=== PATIENT | female | born 1955 | race Caucasian/White ===

== ENCOUNTER 2022-07-27 08:55 | Outpatient (CLI) | payer OTHER, SELFPAY | END 2022-07-27 08:56 | disposition home or self-care (01) | PROVIDERS: PCP Family Medicine; Visit Provider Family Medicine | DX: R53.83 Other fatigue (principal); I10 Essential (primary) hypertension; R30.0 Dysuria; Z13.6 Encounter for screening for cardiovascular disorders | CPT/HCPCS: 80053; 80061; 82607; 84443; 85651 ==

== ENCOUNTER 2022-07-30 11:33 | Outpatient (CLI) | payer OTHER, SELFPAY | END 2022-07-30 11:34 | disposition home or self-care (01) | LOC: LONREF 11:33 | PROVIDERS: PCP Family Medicine; Visit Provider Family Medicine | DX: D50.9 Iron deficiency anemia, unspecified (principal) | CPT/HCPCS: 82728 ==

== ENCOUNTER 2022-11-02 10:03 | Outpatient (CLI) | payer OTHER, SELFPAY ==
--- NOTE | 2022-11-02 10:15 | CRLHL7_ITS ---
For Patients: As a result of the Century Cures Act, medical imaging exams and procedure reports are released immediately into your electronic medical record. You may view this report before your referring provider. If you have questions, please contact your health care provider. BILATERAL SCREENING MAMMOGRAM WITH COMPUTER-AIDED DETECTION AND TOMOSYNTHESIS TECHNIQUE: CC and MLO views were obtained. These mammographic images have been obtained using full-field digital technique. These mammographic images were interpreted with the benefit of computer-aided detection. Breast Tomosynthesis was used in this interpretation. COMPARISON FILM: 10/29/21, 03/09/19, 05/02/18. FINDINGS: The breasts are extremely dense, which lowers the sensitivity of mammography IMPRESSION: There is no radiographic evidence for malignancy. ASSESSMENT: BI-RADS Category 1: Negative RECOMMENDATION: Routine screening mammogram in 1 year. A lay language report of this examination will be provided to the patient. Boogie Hayden M.D. Diagnostic/Nuclear Medicine Radiologist [email or web address] SATINDER/Dictated by: Boogie Hayden MD @ 11/02/2022 10:32:00 AM (Electronically Signed)
== END 2022-11-02 10:04 | disposition home or self-care (01) ==
PROVIDERS: PCP Family Medicine; Visit Provider Family Medicine
DX: Z12.31 Encounter for screening mammogram for malignant neoplasm of breast (principal); R92.2 Inconclusive mammogram
CPT/HCPCS: 77063; 77067

== ENCOUNTER 2023-05-07 08:36 | Outpatient (CLI) | payer OTHER, SELFPAY ==
--- NOTE | 2023-05-07 09:00 | CRLHL7_ITS ---
For Patients: As a result of the Century Cures Act, medical imaging exams and procedure reports are released immediately into your electronic medical record. You may view this report before your referring provider. If you have questions, please contact your health care provider. INDICATION: Low back pain. TECHNIQUE: Multiplanar multisequence noncontrast MR images of the lumbar spine. COMPARISON: Lumbar spine radiographs 06/03/2022. FINDINGS: Ieog-ed-lfwhlbzd leftward lumbar curvature. Lumbar lordosis is preserved. Fnta-vb-xftyxboe chronic L1 vertebral body anterior wedging. No acute fracture. No T1 hypointense lesions. Normal conus terminates at L1-2. T12-L1: Moderate disc degeneration. Shallow posterior disc bulge. No spinal canal or neural foraminal narrowing. L1-2: Moderate disc degeneration and disc height loss. Minimal vertebral body edema. Posterior bulging and endplate spondylitic ridging. Mild facet arthropathy. Mild spinal canal and left lateral recess narrowing. Mild left without right neural foraminal narrowing. L2-3: Advanced disc degeneration and disc height loss. Left eccentric disc bulging and endplate spondylitic ridging. Ucrj-sr-yacckxvn facet arthropathy. Hwrl-mu-ssjhonhx spinal canal narrowing. Moderate left and vslf-lo-eetaewbg right lateral recess narrowing. Mild left without right neural foraminal narrowing. L3-4: Advanced disc degeneration and right eccentric disc height loss. Minimal vertebral body edema. Posterior disc bulging and endplate spondylitic ridging. Mild facet arthropathy. Mild spinal canal narrowing. Moderate stenosis of the lateral recesses. Mild right and minimal left neural foraminal narrowing. L4-5: Advanced disc degeneration and disc height loss. Posterior disc bulging and endplate spondylitic ridging. Moderate facet arthropathy. Mild spinal canal narrowing. Moderate left and osmc-wv-qyncpeme right lateral recess narrowing. Moderate left and mild right neural foraminal narrowing. L5-S1: Advanced disc degeneration and disc height loss. Posterior disc bulging and endplate spondylitic ridging. Fsjg-hr-scirldcy left and mild right facet arthropathy. No spinal narrowing. Ylky-qr-ijuygjvm left and mild right neural foraminal narrowing. Sacroiliac joint degenerative changes. Small T2 hyperintense lesions in the kidneys, most typical for renal cysts. IMPRESSION: 1. Multilevel lumbar spondylosis without spinal canal stenosis. 2. At L2-3, moderate left and wnma-qt-lnopydte right lateral recess narrowing. 3. At L3-4, moderate stenosis of the lateral recesses. 4. At L4-5, moderate narrowing of the left lateral recess and left neural foramen. Dictated by Feroz Lopez MD @ 05/07/2023 7:08:29 PM (Electronically Signed)
== END 2023-05-07 08:37 | disposition home or self-care (01) ==
LOC: MRI 08:36
PROVIDERS: PCP Family Medicine; Visit Provider Family Medicine
DX: M54.50 Low back pain, unspecified (principal); M47.896 Other spondylosis, lumbar region; M51.26 Other intervertebral disc displacement, lumbar region; M79.604 Pain in right leg; M79.605 Pain in left leg; R29.898 Other symptoms and signs involving the musculoskeletal system
CPT/HCPCS: 72148

== ENCOUNTER 2023-05-19 11:38 | Outpatient (CLI) | payer OTHER, SELFPAY ==
--- OUTSIDE RECORDS SUMMARY | 2023-05-24 21:03 | XMS_ITS | Clinical Summary ---
Author Name Unknown Organization [facility] Address [place], [place] [address] Care Team Providers Care Plate Stacker Name Role Phone Claudio Quezada MD Primary Care Provider Allergies Active Allergy Reactions Criticality Noted Date Comments Codeine Vomiting 07/27/2006 Medications Medication Sig Dispensed Refills Start Date End Date Status multivitamin (MVI) tablet Take 1 tablet by mouth once daily. 0 07/17/2009 Active calcium carbonate-vitamin D3, 600 mg-400 unit, tablet Take 1 tablet by mouth 2 times daily with meals. 180 tablet 0 05/05/2012 Active lisinopril-hydrochlor othiazide, 10-12.5 mg, (PRINZIDE; ZESTORETIC) 10-12.5 mg per tabletIndications:HTN (hypertension) Take 1 tablet by mouth once daily. 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 alireza 08/13/2016 Trochanteric bursitis 01/19/2012 Osteoarthritis of CMC joint of thumb 01/19/2012 Lateral epicondylitis of elbow 04/01/2011 Herpes simplex without mention of complication 0 12/23/2010 HTN (hypertension) 02/21/2008 Overview: Updated by system to replace inactive record Regular astigmatism 04/01/2006 Presbyopia 04/01/2006 Myopia 04/01/2006 BACK PAIN 11/25/2004 Resolved Problems Problem Noted Date Diagnosed Date Resolved Date Acute cystitis 11/29/2003 12/23/2010 Encounters Date Type Department Care Team Description 05/13/2023 Transcribe Orders [facility] - [place] [address] [place] [id number] Nate Cerrato MD from Last 3 Months Immunizations Name Administration Dates Next Due Influenza, IIV3 (Age >=3 years) 02/05/2009 Td (Age >=7 Years) 05/25/1996 Tdap 10/03/2007 Family History Medical History Relation Name Comments Other Father pancreatic canc er Cancer Mother lung Genetic Other cancer-father~h ypertension-father~diabetes-grandfather~ cataracts-grandmot Relation Name Status Comments Brother 1 Alive Brother 2 Alive Father Mother Other Sister 1 Alive Sister 2 Alive Social History Tobacco Use Types Packs/Day Years Used Date Smoking Tobacco: Never Smokeless Tobacco: Never Alcohol Use Standard Drinks/Week Comments Yes 1.7 (1 standard drink = 0.6 oz p ure alcohol) 1-2 week Sex and Gender Information Value Date Recorded Sex Assigned at Not on file Gender Identity Not on file Sexual Orientation Not on file Obstetrics History Para Term AB IAB SAB Ectopic Multiple Livin g Live Births 2 2 2 0 0 0 0 0 2 Date Outcome GA Total Labor Labor/2nd/3rd Weight Sex Delivery Anes PTL Laura A1 A5 Name Cl in Term Term Comments NSVLD x2 Last Filed Vital Signs Vital Sign Reading Time Taken Comments Blood Pressure 119/72 08/13/2016 5:41 PM CDT Pulse 84 08/13/2016 5:41 PM CDT Temperature 37.1 ??C (98.8 ??F) 12/14/2011 3:32 PM CD T Respiratory Rate 14 01/01/2012 8:35 AM CDT Oxygen Saturation 99% 12/14/2011 3:32 PM CDT Inhaled Oxygen Concentration - - Weight 51.3 kg (113 lb 2 oz) 01/19/2012 9:02 AM CDT Height 161.3 cm (5' 3.5) 01/01/2012 8:35 AM CDT Body Mass Index 19.72 01/01/2012 8:35 AM CDT Plan of Treatment Upcoming Encounters Date Type Department Care Team (Late st Contact Info) Description 06/07/2023 9:15 AM SENIOR QUALITY TECHNICIAN Appointment [facility] [address] [place] [address] Samantha Drake, PT [address] [place] [address] Health Maintenance Due Date Last Done Comments COVID-19 vaccine series (#1) 1955 Depression screening for age 12+ 1967 BMI (ht and wt on same day) for age 18+ 1973 Hepatitis C screening for ag e 18-79 1973 Zoster (shingles) series for age 50+ (1 of 2) 2005 Mammogram for age 45-75 12/22/2012 12/23/19 12, 12/29/2010, 09/12/2010, Additional history exists Lipids for age 45-75 12/24/2015 12/23/2010, 12/11/2009, 12/10/2008, Additional history exists Tetanus booster 10/02/2017 10/03/2007, 05/25/1996 Colonoscopy through age 75 11/22/2017 11/23/2007, DEXA/DXA scan for age 65+ 2020 12/12/2009 Pneumococcal series for age 65+ (1 of 1 - PCV) 2020 Influenza for age 65+ 01/15/2023 02/05/2009 Tdap Completed 10/03/2007 Care Teams Plate Stacker Relationship Specialty Start Date End Date Claudio Quezada MD PCP - General Family Practice 07/29/16
== END 2023-05-19 11:39 | disposition home or self-care (01) ==
LOC: NFLDREF 05-24 21:01
PROVIDERS: PCP Family Medicine; Referring Provider Family Medicine; Visit Provider Family Medicine
DX: M54.50 Low back pain, unspecified (principal)
CPT/HCPCS: 87086

== ENCOUNTER 2023-07-27 17:35 | Outpatient (CLI) | payer OTHER, SELFPAY | END 2023-07-27 17:36 | disposition home or self-care (01) | PROVIDERS: PCP Nurse Practitioner Family; Visit Provider Nurse Practitioner Family | DX: R41.89 Other symptoms and signs involving cognitive functions and awareness (principal) | CPT/HCPCS: 80053; 83735; 84443; 86039 ==

== ENCOUNTER 2023-08-06 16:34 | Emergency (ER) | payer OTHER, SELFPAY ==
[2023-08-06 16:40] VITALS: BP 107/66; PULSE 92; RESP 18; TEMP 36.7; O2SAT 99; BMI 22.1
--- NOTE | 2023-08-06 17:14 | ED.GENADULT ---
HPI - General Adult General Time Seen by Provider: 17:02 Date Seen: 08/06/23 Chief complaint: Arrhythmia/Palpitations Stated complaint: heart palpitations Time Seen by Provider: 08/06/23 16:55 Source: patient, RN notes reviewed and old records reviewed Mode of arrival: ambulatory Limitations: no limitations History of Present Illness HPI narrative: 68-year-old female who comes in today with multiple concerns. She reports that she has been having palpitations for the last several weeks. Also says her thinking feels foggy. A couple weeks ago she woke up with headaches on the top of her head, relieved with Excedrin. Some dyspnea on exertion, also posterior neck pain. She denies any fever, chills, weight loss, weight gain, urinary symptoms, nausea, vomiting, diarrhea, abdominal pain or bloating. Says she has seen in drinking normally. Denies increased stress. Patient is concerned that symptoms may be related to Botox that she got 4 months ago. Related Data Previous Rx's Medication Instructions Recorded lisinopril 10 1 tab PO DAILY #90 tabs 11/03/22 mg-hydrochlorothiazide 12.5 mg tablet estradiol 1 mg tablet 1 mg PO QDAY #30 tabs 05/20/23 progesterone micronized 100 mg 100 mg PO QAM 21 days #21 caps 05/20/23 capsule (Prometrium) Allergies Allergy/AdvReac Type Severity Reaction Status Date / Time codeine AdvReac Unknown Vomiting Verified 07/27/23 16:54 [facility] Medical History (Updated 08/06/23 @ 19:45 by Ashwin Betancourt MD) Arthralgia ?M25.50 - Pain in unspecified joint (ICD-10) Weakness of back ?R29.898 - Other symptoms and signs involving the musculoskeletal system (ICD-10) Low back pain radiating to both legs ?M54.50 - Low back pain, unspecified (ICD-10) ?M79.604 - Pain in right leg (ICD-10) ?M79.605 - Pain in left leg (ICD-10) Status post hysteroscopy ?Z98.890 - Other specified postprocedural states (ICD-10) Family History (Updated 05/05/23 @ 16:06 by Gomez Verduzco) Other Parkinson's disease Social History Smoking Status: Never smoker Do you use any of these nicotine containing products: None Second hand tobacco smoke exposure: No How often do you have a drink containing alcohol: never How often do you have six or more drinks on one occasion: Never AUDIT-C Alcohol total score: 0 Non-prescribed substance use: denies use service: No Exam Narrative: Exam Narrative: General: Well-developed and well-nourished, no acute distress Head: Atraumatic and normocephalic Eyes: Pupils are equal reactive, extraocular motions intact, conjunctiva clear ENT: External nose and ears are normal, posterior pharynx without erythema or exudate Neck: No midline cervical tenderness, full spontaneous range of motion the neck, trachea midline, no adenopathy Heart: Regular rate and rhythm no murmurs or thrills Lungs: Clear to auscultation bilaterally without wheezes or crackles Abdomen: Soft, nontender, nondistended with active bowel sounds Musculoskeletal: No tenderness, deformity, or edema Neurologic: Awake, alert, and oriented x3, no gross focal neurologic deficits, cranial nerves intact as tested Psych: Mood and affect are appropriate Skin: No rashes Const: Vital Signs, click to edit/add: Vital Signs - 24 hr 08/06/23 16:40 Temperature 98.0 F Pulse Rate [Pulse Oximeter] 92 Respiratory Rate 18 Blood Pressure [Ri ght Upper Arm] 107/66 Pulse Oximetry 99 Oxygen Delivery Me thod Room Air Course Course ED Course: Patient seen examined, prior records reviewed, reviewed prior labs which demonstrated normal basic metabolic panel normal magnesium, normal hepatic panel, normal ferritin, normal TSH, normal urinalysis. Patient presents today with multiple ongoing complaints including palpitations, intermittent headache, neck pain, lightheadedness, dyspnea on exertion. On exam here, patient's vital is stable, no focal neurologic deficits, lungs are clear, no abdominal tenderness or masses. Labs are ordered along with head CT given patient's concern about headaches although no focal neurologic deficits today. IV fluids will be initiated. I did review prior office visit from July 2022 when patient presented with almost identical symptoms of palpitations, shortness of breath, fatigue, brain fog and lightheadedness, negative evaluation at that time. Reevaluation(s) Time of Reevaluation #1: 18:45 Reevaluation #1: Labs ordered and independently interpreted by me with normal white blood cell count, normal basic metabolic panel other than slightly low anion gap. CT scan of the head neck does not demonstrate any acute finding, chest x-ray independently interpreted by me negative for acute or chronic findings. Vital Signs Vital signs: Initial Vital Signs Temperature 98.0 F 08/06/23 16:40 Temperature Source Temporal Artery Scan 08/06/23 16:40 Pulse Rate 92 08/06/23 16:40 Respiratory Rate 18 08/06/23 16:40 Blood Pressure 107/66 08/06/23 16:40 Blood Pressure Mean 79 08/06/23 16:40 Blood Pressure Position Sitting 08/06/23 16:40 Pulse Oximetry 99 08/06/23 16:40 Oxygen Delivery Method Room Air 08/06/23 16:40 Vital Signs Temperature 98.0 F 08/06/23 16:40 Pulse Rate 92 08/06/23 16:40 Respiratory Rate 18 08/06/23 16:40 Blood Pressure 107/66 08/06/23 16:40 Pulse Oximetry 99 08/06/23 16:40 Oxygen Delivery Method Room Air 08/06/23 16:40 Temperature 98.0 F 08/06/23 16:40 Pulse Rate 92 08/06/23 16:40 Respiratory Rate 18 08/06/23 16:40 Blood Pressure 107/66 08/06/23 16:40 Pulse Oximetry 99 08/06/23 16:40 Oxygen Delivery Method Room Air 08/06/23 16:40 Medications Administered Medications: Discontinued Medications Generic Name Dose Route Start Last Admin Trade Name Freq PRN Reason Stop Dose Admin Sodium Chloride 1,000 mls @ 1,000 mls/hr 08/06/23 17:30 08/06/23 18:51 0.9 % Sodium Chloride 1000 Ml IV 08/06/23 18:29 1,000 mls/hr .Q1H ALEJANDRO Administration Medical Decision Making Lab Data Labs: Lab Results 08/06/23 08/06/23 08/06/23 Range/Units 17:20 17:55 17:55 WBC 7.79 (4.50-11.00) K/uL RBC 4.50 (4.00-5.20) m/uL Hgb 14.4 (12.0-16.0) gm/dL Hct 43.0 (33.0-51.0) % MCV 96 (80-100) fL MCH 32 (26-34) pg MCHC 34 (32-36) gm/dL RDW Coeff of Son 13.2 (11.5-15.5) % Plt Count 185 (140-440) K/uL Neut % (Auto) 73.1 H (42.0-72.0) % Lymph % (Auto) 19.6 L (20-44) % Payne % (Auto) 6.3 (0.0-11.0) % Eos % (Auto) 0.6 (0.0-7.0) % Baso % (Auto) 0.4 (0.0-3.0) % Neut # (Auto) 5.70 (1.7-7.0) K/uL Lymph # (Auto) 1.50 (0.90-2.90) K/uL Payne # (Auto) 0.50 (0.00-0.90) K/UL Eos # (Auto) 0.05 (0.00-0.50) K/uL Baso # (Auto) 0.03 (0.00-0.30) K/uL Abs Immat Gran (auto) 0.00 (0.00-0.30) K/uL Imm/Tot Granulo (auto) 0.0 % Sodium Cancelled 138 Potassium Cancelled Chloride Carbon Dioxide Anion Gap BUN Creatinine Estimated Creat Clear Estimated GFR Glucose Calcium Magnesium (1.5-2.6) mg/dL C-Reactive Protein (0.5-1.0) mg/dL NT-Pro-B Natriuret Pep pg/mL POC Troponin I 0.00 L (0.01-0.04) ng/ml 08/06/23 08/06/23 08/06/23 Range/Units 17:55 17:55 17:55 WBC (4.50-11.00) K/uL RBC (4.00-5.20) m/uL Hgb (12.0-16.0) gm/dL Hct (33.0-51.0) % MCV (80-100) fL MCH (26-34) pg MCHC (32-36) gm/dL RDW Coeff of Son (11.5-15.5) % Plt Count (140-440) K/uL Neut % (Auto) (42.0-72.0) % Lymph % (Auto) (20-44) % Payne % (Auto) (0.0-11.0) % Eos % (Auto) (0.0-7.0) % Baso % (Auto) (0.0-3.0) % Neut # (Auto) (1.7-7.0) K/uL Lymph # (Auto) (0.90-2.90) K/uL Payne # (Auto) (0.00-0.90) K/UL Eos # (Auto) (0.00-0.50) K/uL Baso # (Auto) (0.00-0.30) K/uL Abs Immat Gran (auto) (0.00-0.30) K/uL Imm/Tot Granulo (auto) % Sodium Potassium 4.4 Chloride Cancelled 104 Carbon Dioxide Cancelled 29 Anion Gap Cancelled BUN Creatinine Estimated Creat Clear Estimated GFR Glucose Calcium Magnesium (1.5-2.6) mg/dL C-Reactive Protein (0.5-1.0) mg/dL NT-Pro-B Natriuret Pep pg/mL POC Troponin I (0.01-0.04) ng/ml 08/06/23 08/06/23 08/06/23 Range/Units 17:55 17:55 17:55 WBC (4.50-11.00) K/uL RBC (4.00-5.20) m/uL Hgb (12.0-16.0) gm/dL Hct (33.0-51.0) % MCV (80-100) fL MCH (26-34) pg MCHC (32-36) gm/dL RDW Coeff of Son (11.5-15.5) % Plt Count (140-440) K/uL Neut % (Auto) (42.0-72.0) % Lymph % (Auto) (20-44) % Payne % (Auto) (0.0-11.0) % Eos % (Auto) (0.0-7.0) % Baso % (Auto) (0.0-3.0) % Neut # (Auto) (1.7-7.0) K/uL Lymph # (Auto) (0.90-2.90) K/uL Payne # (Auto) (0.00-0.90) K/UL Eos # (Auto) (0.00-0.50) K/uL Baso # (Auto) (0.00-0.30) K/uL Abs Immat Gran (auto) (0.00-0.30) K/uL Imm/Tot Granulo (auto) % Sodium Potassium Chloride Carbon Dioxide Anion Gap 5 L BUN Cancelled 17 Creatinine Cancelled 0.6 Estimated Creat Clear Cancelled Estimated GFR Glucose Calcium Magnesium (1.5-2.6) mg/dL C-Reactive Protein (0.5-1.0) mg/dL NT-Pro-B Natriuret Pep pg/mL POC Troponin I (0.01-0.04) ng/ml 08/06/23 08/06/23 08/06/23 Range/Units 17:55 17:55 17:55 WBC (4.50-11.00) K/uL RBC (4.00-5.20) m/uL Hgb (12.0-16.0) gm/dL Hct (33.0-51.0) % MCV (80-100) fL MCH (26-34) pg MCHC (32-36) gm/dL RDW Coeff of Son (11.5-15.5) % Plt Count (140-440) K/uL Neut % (Auto) (42.0-72.0) % Lymph % (Auto) (20-44) % Payne % (Auto) (0.0-11.0) % Eos % (Auto) (0.0-7.0) % Baso % (Auto) (0.0-3.0) % Neut # (Auto) (1.7-7.0) K/uL Lymph # (Auto) (0.90-2.90) K/uL Payne # (Auto) (0.00-0.90) K/UL Eos # (Auto) (0.00-0.50) K/uL Baso # (Auto) (0.00-0.30) K/uL Abs Immat Gran (auto) (0.00-0.30) K/uL Imm/Tot Granulo (auto) % Sodium Potassium Chloride Carbon Dioxide Anion Gap BUN Creatinine Estimated Creat Clear 44.54 Estimated GFR Cancelled 98 Glucose Cancelled 102 Calcium Cancelled Magnesium (1.5-2.6) mg/dL C-Reactive Protein (0.5-1.0) mg/dL NT-Pro-B Natriuret Pep pg/mL POC Troponin I (0.01-0.04) ng/ml 08/06/23 Range/Units 17:55 WBC (4.50-11.00) K/uL RBC (4.00-5.20) m/uL Hgb (12.0-16.0) gm/dL Hct (33.0-51.0) % MCV (80-100) fL MCH (26-34) pg MCHC (32-36) gm/dL RDW Coeff of Son (11.5-15.5) % Plt Count (140-440) K/uL Neut % (Auto) (42.0-72.0) % Lymph % (Auto) (20-44) % Payne % (Auto) (0.0-11.0) % Eos % (Auto) (0.0-7.0) % Baso % (Auto) (0.0-3.0) % Neut # (Auto) (1.7-7.0) K/uL Lymph # (Auto) (0.90-2.90) K/uL Payne # (Auto) (0.00-0.90) K/UL Eos # (Auto) (0.00-0.50) K/uL Baso # (Auto) (0.00-0.30) K/uL Abs Immat Gran (auto) (0.00-0.30) K/uL Imm/Tot Granulo (auto) % Sodium Potassium Chloride Carbon Dioxide Anion Gap BUN Creatinine Estimated Creat Clear Estimated GFR Glucose Calcium 9.5 Magnesium 2.0 (1.5-2.6) mg/dL C-Reactive Protein < 0.5 L (0.5-1.0) mg/dL NT-Pro-B Natriuret Pep < 20 pg/mL POC Troponin I (0.01-0.04) ng/ml ECG Data Attestation: I personally reviewed and interpreted this ECG as follows: Prior ECG tracings: not available for review Interpretation: But performed at 4:43 p.m. demonstrates normal sinus rhythm rate 85, no acute ST elevations or depressions, normal intervals, normal axis, QTC 430, IL 138. No change from prior of July 2022. Discharge Plan Discharge Clinical Impression: WRIGHT (dyspnea on exertion), Malaise, Intermittent palpitations, Neck pain Patient Disposition: Home, Self-Care Condition: Stable Instructions: Heart Palpitations (ED), Dyspnea (ED) Additional Instructions: Follow-up with your primary care doctor for discussion further testing including echocardiogram and Holter monitor Activity Level: Activity as Tolerated Discharge Diet: Regular Prescriptions: No Action lisinopril-hydrochlorothiazide 10-12.5 mg tablet 1 tab PO DAILY Qty: 90 3RF estradiol 1 mg tablet 1 mg PO QDAY Qty: 30 5RF progesterone micronized [Prometrium] 100 mg capsule 100 mg PO QAM 21 Days Qty: 21 5RF Rx Instructions: Treat for 21 days, then off 7 days; repeat cycle Follow Up/Referrals: Ayleen Saravia APRN, MARKETING TRAFFIC MANAGER [Primary Care Provider] - Stand Alone Forms: [employer] Info Instructions
--- NOTE | 2023-08-06 17:20 | XR_ITS ---
Patient: KEREN REDDING Facility:?[facility] Patient ID:?[id number] Site Patient ID:?[id number]. Site :?1955 Study:?XRay-Chest 2 VIEWS-08/06/2023 5:39:37 PM Ordering Physician:ERNST Final Report: INDICATIONS: Palpitations. TECHNIQUE: Chest 2 view. COMPARISON: None FINDINGS: No pneumothorax or pleural effusion. Lungs are clear. Cardiac and mediastinal contours are within normal limits. Upper abdomen and osseous structures as imaged show no acute abnormality. IMPRESSION: No evidence of acute cardiopulmonary disease. Dictated by Ash Rob MD @ 08/06/2023 6:32:48 PM Signed by:?Ash Rob MD @08/06/2023 6:32:48 PM (Electronic Signature)
--- NOTE | 2023-08-06 17:25 | CT_ITS ---
Patient: KEREN REDDING Facility:?[facility] Patient ID:?[id number] Site Patient ID:?[id number]. Site :?1955 Study:?CT-Neck Angio W/95CC [id number] ALL IMAGES ON ANGIO N-08/06/2023 6:23:28 PM Ordering Physician:ERNST Final Report: INDICATION: Severe headache. TECHNIQUE: CTA neck with contrast bolus tracking, 3D angiographic rendering using maximum intensity projection (MIP) and images permanently archived. FINDINGS: There is no significant carotid artery stenosis or dissection. There is no significant vertebral artery stenosis or dissection. The soft tissues of the neck are within normal limits. The cervical spine is in normal alignment. Degenerative changes are noted in the cervical spine. IMPRESSION: No significant carotid or vertebral artery stenosis or dissection. Please note that all CT scans at this facility use dose modulation, iterative reconstruction, and/or weight-based dosing when appropriate to reduce radiation dose to as low as reasonably achievable. Dictated by Vijay Neumann MD @ 08/07/2023 9:12:56 AM Signed by:?Vijay Neumann MD @08/07/2023 9:12:56 AM (Electronic Signature)
--- NOTE | 2023-08-06 17:25 | CT_ITS ---
Patient: KEREN REDDING Facility:?[facility] Patient ID:?[id number] Site Patient ID:?[id number]. Site :?1955 Study:?CT-Head Angio W/95CC [id number] ALL IMAGES ON ANGIO N-08/06/2023 6:23:35 PM Ordering Physician:ERNST Final Report: INDICATION: Severe headache. TECHNIQUE: CTA head with contrast bolus tracking, 3D angiographic rendering using maximum intensity projection (MIP) and images permanently archived. FINDINGS: There is normal opacification of the intracranial vasculature. There is no large vessel occlusion. No aneurysm is identified. IMPRESSION: Unremarkable head CTA. Please note that all CT scans at this facility use dose modulation, iterative reconstruction, and/or weight-based dosing when appropriate to reduce radiation dose to as low as reasonably achievable. Dictated by Vijay Neumann MD @ 08/07/2023 9:11:16 AM Signed by:?Vijay Neumann MD @08/07/2023 9:11:16 AM (Electronic Signature)
[2023-08-06 18:16] LABS: Basophils Absolute Auto 0.03 K/uL (0.00-0.30); Basophils Percent Auto 0.4 % (0.0-3.0); Eosinophils Absolute Auto 0.05 K/uL (0.00-0.50); Eosinophils Percent Auto 0.6 % (0.0-7.0); Hemoglobin* 14.4 gm/dL (12.0-16.0); Lymphocytes Percent Auto 19.6 % (20-44); Mean Corpuscular HGB Conc 34 gm/dL (32-36); Mean Corpuscular Hemoglobin 32 pg (26-34); Mean Corpuscular Volume 96 fL (80-100); Monocytes Percent Auto 6.3 % (0.0-11.0); Neutrophils Percent Auto 73.1 % (42.0-72.0); Platelet Count* 185 K/uL (140-440); RDW Coefficient of Variation % 13.2 % (11.5-15.5); White Blood Count* 7.79 K/uL (4.50-11.00)
[2023-08-06 18:18] LABS: Slide Review Reflex No
[2023-08-06 18:29] LABS: Chloride* 104 mmol/L (96-114); Potassium* 4.4 mmol/L (3.6-5.1); Sodium* 138 mmol/L (135-149)
[2023-08-06 18:32] LABS: Creatinine* 0.6 mg/dL (0.5-1.5); Est. Creatinine Clearance* 44.54; Estimated Glomerular Filt Rate 98 ml/min
[2023-08-06 18:33] LABS: Anion Gap 5 mEq/L (7-15); Blood Urea Nitrogen* 17 mg/dL (7-30); Calcium* 9.5 mg/dL (8.4-10.6); Carbon Dioxide* 29 mmol/L (20-32); Glucose* 102 mg/dL (60-115)
[2023-08-06 18:51] LABS: C Reactive Protein* < 0.5 mg/dL (0.5-1.0); NT Pro B Type NatriureticPept* < 20 pg/mL
[2023-08-06] MEDS: 0.9 % SODIUM CHLORIDE 1000 ml 1,000 ML IV (18:51)
== END 2023-08-06 20:01 | disposition home or self-care (01) ==
PROVIDERS: Emergency Provider Family Medicine; PCP Nurse Practitioner Family
DX: R06.09 Other forms of dyspnea (principal); R53.81 Other malaise; R00.2 Palpitations; M54.2 Cervicalgia
CPT/HCPCS: 36415; 70496; 70498; 71046; 80048; 82565; 83735; 83880; 84484; 85025; 86140; 93005; 96365; 99284; 99285; J7030; Q9967

== ENCOUNTER 2023-08-09 15:43 | Outpatient (CLI) | payer OTHER, SELFPAY | END 2023-08-09 15:44 | disposition home or self-care (01) | LOC: KYNREF 15:44 | PROVIDERS: PCP Nurse Practitioner Family; Visit Provider Nurse Practitioner Family | DX: Z13.21 Encounter for screening for nutritional disorder (principal) | CPT/HCPCS: 82306 ==

== ENCOUNTER 2023-08-16 08:42 | Outpatient (CLI) | payer OTHER, SELFPAY | END 2023-08-16 08:43 | disposition home or self-care (01) | PROVIDERS: PCP Nurse Practitioner Family; Visit Provider Nurse Practitioner Family | DX: R06.09 Other forms of dyspnea (principal); R00.2 Palpitations | CPT/HCPCS: 93225; 93226; 93306 ==

== ENCOUNTER 2023-09-21 09:32 | Outpatient (CLI) | payer OTHER, SELFPAY ==
--- OUTSIDE RECORDS SUMMARY | 2023-09-21 09:34 | XMS_ITS | Clinical Summary ---
Author Name Unknown Organization [employer] [facility] Address [place], [place] [address] Care Team Providers Care Resource Manager Name Role Phone Claudio Quezada MD Primary Care Provider [phone] Allergies Active Allergy Reactions Criticality Noted Date Comments Codeine Vomiting 07/27/2006 Medications Medication Sig Dispensed Refills Start Date End Date Status multivitamin (MVI) tablet Take 1 tablet by mouth once daily. 0 07/17/2009 Active calcium carbonate-vitamin D3, 600 mg-400 unit, tablet Take 1 tablet by mouth 2 times daily with meals. 180 tablet 05/05/2012 Active lisinopril-hydrochlor othiazide, 10-12.5 mg, (PRINZIDE; [...] Encounters Date Type Department Care Team Description 08/19/2023 Orders Only [facility] [address] [place] [address] Uzma Funk 1 scan: (1-Ord) Holter Report ([id number]) 08/16/2023 2:22 PM CDT - 08/16/2023 11:59 PM CDT Hospital Encounter [facility] [address] [place] [address] Anjelica Saravia NP 08/16/2023 9:00 AM CDT Ancillary Procedure [facility] [address] [place] [address] from Last 3 Months Immunizations Name Administration [...] 01/01/2012 8:35 AM CDT Plan of Treatment Health Maintenance Due Date Last Done Comments Depression screening for age 12+ 1967 BMI [...] 65+ (1 of 1 - PCV) 2020 COVID-19 vaccine series (1 - 2022-24 season) 2023 Influenza for age 65+ 01/16/2024 02/05/2009 Tdap Completed 10/03/2007 Procedures Procedure Name Priority Date/Time Associated Diagnosis Comments HOLTER MONITOR 48 HOURS Routine 08/19/2023 12:00 AM CDT Palpitations ECHO TTE COMPLETE WO CONTRAST Routine 08/16/2023 9:43 AM CDT Dyspnea XR MAMMO BILAT SCREEN FFDM (IA) Routine 12/23/2011 9:41 AM CDT Other screening mammogram LIPID PANEL Routine 12/23/2010 9:26 AM CDT Annual physical exam XR DXA BONE DENSITY 2 SITES AXIAL Routine 12/12/2009 9:09 AM CDT Osteoporosis screening COLONOSCOPY SCREENING Routine 11/23/2007 Screening Malignant Neoplasms Colon from Last 3 Months or Most Recently Relevant to Health Maintenance Results * HOLTER MONITOR 48 HOURS (08/19/2023 12:00 AM CDT) Anjelica Saravia NP CARDIAC SERVICES O RD * ECHO TTE COMPLETE WO CONTRAST (08/16/2023 9:43 AM CDT) AORTIC VALVE MEAN PG 3 mmHg EJECTION FRACTION 61 % LVEDD 4.2 cm Anatomical Region Laterality Modality Ultrasound 08/16/2023 9:01 AM CDT Narrative 08/16/2023 11:12 AM CDT ECHOCARDIOGRAM KEREN GARCIA ?Accession#: ?? [id number] : ?1955 68 years Study Date: ?? 08/16/2023 9:01:59 AM Gender: F ? BP: ? 104/65 mmHg Height: 160.00 cm ? BSA: ?1.51 m? ? ? Weight: 51.00 kg ?Tech: ? MBF ?Referring MD: ANJELICA SARAVIA Site: ? [facility] Reading Location: Mobile OP Patient Location: Outpatient. Procedure: 2D, Color Doppler and Spectral Doppler. Indication for study: Dyspnea Cardiac Rhythm: Regular.Study quality: Final Impressions: 1. Normal left ventricular size, normal wall thickness, normal global systolic function, calculated EF of 61 %. 2. Right ventricular cavity size is normal, global systolic RV function is normal. 3. No significant valvular heart disease noted. 4. IVC geometry compatible with a normal estimated RA pressure (3 mmHg). Inadequate TR envelope for estimation of right ventricular systolic pressures. 5. No pericardial effusion, masses, or shunts appreciated. Comparison There are no prior studies on this patient for comparison purposes. Chamber Sizes and Function Normal left ventricular size, normal wall thickness, normal global systolic function, calculated EF of 61 %. Left atrial size is normal. Right ventricular cavity size is normal, global systolic RV function is normal. RV wall thickness is normal. The right atrium is normal. The pulmonary artery is of normal size and origin. The sinus of Valsalva is normal sized. The ascending aorta is normal sized. Valves, RV Pressures and Diastolic Function The aortic valve is normal in structure and trileaflet, no stenosis and no regurgitation. The mitral valve is normal in structure, trace mitral regurgitation. Spectral Doppler shows Grade 1 pattern of LV diastolic filling. The tricuspid valve is normal in structure. Tricuspid regurgitation is trace regurgitation. The pulmonic valve is normal. Trace pulmonary regurgitation. Masses, Effusion, Shunts There is no pericardial effusion. The inferior vena cava is normal sized, respiratory size variation greater than 50%. No left to right shunting was detected by limited color flow Doppler interrogation of the interatrial septum. MEASUREMENTS AND CALCULATIONS 2-D Measurements and LV Function: LVID (d) 4.2 cm Planimetered EF 61 % LVID (s) 3.3 cm LV FS% (2D) ? 21 % IVS (d) ??0.9 cm LVOT diameter ?? 2.1 cm LVPW (d) 0.9 cm HR ?76 bpm Ao Sinus 3.2 cm LA Vol index ?21 ml/m2 Asc Ao ?? 3.2 cm RV Max 4C (d) ?? 3.1 cm Diastology: Mitral ?Tissue Doppler E Peak 0.4 m/s ??e', Septum ? 0.05 m/s A Peak 0.8 m/s ??e', Lateral ?0.07 m/s E/A ?0.5 ?E/e' Average ?? 7.30 DT ? 207 msec Aortic Valve: Vmax ? 1.1 m/s ??NANDINI (V) ?? 2.81 cm? ? ? VTI ?0.22 m ?? NANDINI (I) ?? 2.58 cm? ? ? LVOT V max 0.9 m/s ??Max PG ?4 mmHg LVOT VTI ?? 0.17 m ?? Mean PG ?? 3 mmHg SV ? 57 ml ?Dim Index 0.76 SV index ?? 37 ml/m? ? ? CO ?4.3 l/min ?CI ?2.8 l/min/m? ? ? Mitral Valve: MVA ?3.7 cm? ? ? MV P 1/2 60 msec Tricuspid Valve and estimated PA pressures: TAPSE 1.2 cm Pulmonic Valve: PIEDV 1.0 m/s . This study was interpreted by an [facility] accredited facility. CC: HIM ([facility]) [facility]. ??Final ?? Procedure Note Sanjeev Morrison MD - 08/16/2023 ECHOCARDIOGRAM KEREN GARCIA : 1955 68 years Study Date: 08/16/2023 9:01:59 AM Gender: F BP: 104/65 mmHg Height: 160.00 cm BSA: 1.51 m? ? ? Weight: 51.00 kg Tech: CARLEE Referring MD: ANJELICA SARAVIA Site: [facility] Reading Location: Mobile OP Patient Location: Outpatient. Procedure: 2D, Color Doppler and Spectral Doppler. Indication for study: Dyspnea Cardiac Rhythm: Regular.Study quality: Final Impressions: 1. Normal left ventricular size, normal wall thickness, normal globalsystolic function, calculated EF of 61 %. 2. Right ventricular cavity size is normal, global systolic RV functionis normal. 3. No significant valvular heart disease noted. 4. IVC geometry compatible with a normal estimated RA pressure (3 mmHg).Inadequate TR envelope for estimation of right ventricular systolicpressures. 5. No pericardial effusion, masses, or shunts appreciated. Comparison There are no prior studies on this patient for comparison purposes. Chamber Sizes and Function Normal left ventricular size, normal wall thickness, normal globalsystolic function, calculated EF of 61 %. Left atrial size is normal.Right ventricular cavity size is normal, global systolic RV function isnormal. RV wall thickness is normal. The right atrium is normal. Thepulmonary artery is of normal size and origin. The sinus of Valsalva isnormal sized. The ascending aorta is normal sized. Valves, RV Pressures and Diastolic Function The aortic valve is normal in structure and trileaflet, no stenosis and noregurgitation. The mitral valve is normal in structure, trace mitralregurgitation. Spectral Doppler shows Grade 1 pattern of LV diastolicfilling. The tricuspid valve is normal in structure. Tricuspidregurgitation is trace regurgitation. The pulmonic valve is normal. Tracepulmonary regurgitation. Masses, Effusion, Shunts There is no pericardial effusion. The inferior vena cava is normal sized,respiratory size variation greater than 50%. No left to right shunting wasdetected by limited color flow Doppler interrogation of the interatrialseptum. MEASUREMENTS AND CALCULATIONS 2-D Measurements and LV Function: LVID (d) 4.2 cm Planimetered EF 61 % LVID (s) 3.3 cm LV FS% (2D) 21 % IVS (d) 0.9 cm LVOT diameter 2.1 cm LVPW (d) 0.9 cm HR 76 bpm Ao Sinus 3.2 cm LA Vol index 21 ml/m2 Asc Ao 3.2 cm RV Max 4C (d) 3.1 cm Diastology: Mitral Tissue Doppler E Peak 0.4 m/s e', Septum 0.05 m/s A Peak 0.8 m/s e', Lateral 0.07 m/s E/A 0.5 E/e' Average 7.30 DT 207 msec Aortic Valve: Vmax 1.1 m/s NANDINI (V) 2.81 cm? ? ? VTI 0.22 m NANDINI (I) 2.58 cm? ? ? LVOT V max 0.9 m/s Max PG 4 mmHg LVOT VTI 0.17 m Mean PG 3 mmHg SV 57 ml Dim Index 0.76 SV index 37 ml/m? ? ? CO 4.3 l/min CI 2.8 l/min/m? ? ? Mitral Valve: MVA 3.7 cm? ? ? MV P 1/2 60 msec Tricuspid Valve and estimated PA pressures: TAPSE 1.2 cm Pulmonic Valve: PIEDV 1.0 m/s . This study was interpreted by an [facility] accredited facility. CC: REECE (med records) [facility]. Final Anjelica Saravia ELECTRICAL CONTINUITY TESTER ECHO ORD * XR MAMMO BILAT SCREEN FFDM (12/23/2011 9:41 AM CDT) Anatomical Region Laterality Modality BREASTS, Breast Left, Breast Right Bilateral Mammography Impressions 12/23/2011 12:19 PM CDT ??There is no radiographic evidence for malignancy. ??Recommend annual mammograms. A lay language report of this examination will be provided to the patient. MAMMOGRAM ASSESSMENT: ??ACR 2 Benign Narrative 12/23/2011 12:19 PM CDT XR MAMMO BILAT SCREEN FFDM [G0202.0] CLINICAL HISTORY: ??This is an asymptomatic 56 y.o. patient. INDICATION FOR EXAM: Mammogram Screening. TECHNIQUE: CC & MLO views were obtained. ??This digital study was evaluated with the assistance of Computer-Aided Detection. ?? COMPARISON FILMS: Yes 12/29/10 [facility] 12/06/09 [facility] FINDINGS: ??Mammographically, the breast tissue is heterogeneously dense, which could obscure detection of small masses (approximately 51% - 75% glandular). ??No suspicious masses or microcalcifications. ??Benign appearing calcifications within both breasts and Benign appearing mass(es) within right breast. Procedure Note Claudoi Keenan DO - 12/23/2011 XR MAMMO BILAT SCREEN FFDM [G0202.0] CLINICAL HISTORY: This is an asymptomatic 56 y.o. patient. INDICATION FOR EXAM: Mammogram Screening. TECHNIQUE: CC & MLO views were obtained. This digital study was evaluatedwith the assistance of Computer-Aided Detection. COMPARISON FILMS: Yes 12/29/10 [facility] 12/06/09 [facility] FINDINGS: Mammographically, the breast tissue is heterogeneously dense,which could obscure detection of small masses (approximately 51% - 75%glandular). No suspicious masses or microcalcifications. Benignappearing calcifications within both breasts and Benign appearing mass(es)within right breast. IMPRESSION: There is no radiographic evidence for malignancy. Recommendannual mammograms. A lay language report of this examination will be provided to the patient. MAMMOGRAM ASSESSMENT: ACR 2 Benign Radha Prasad MD MAMMO * (ABNORMAL) LIPID PANEL (12/23/2010 9:26 AM CDT) CHOLESTEROL,TOTAL 206(H) 110 - 199 mg/dL [facility] TRIGLYCERIDES 118 <150 mg/dL [facility] HDL CHOLESTEROL 74 >40 mg/dL [facility] CHOL/HDL RATIO 2.78 <4.51 [facility] LDL CHOLESTEROL 108 <131 mg/dL [facility] PATIENT STATUS Fasting [facility] Blood specimen (specimen) BLOOD SPECIMEN / Unknown 12/23/2010 9:26 AM CDT 12/23/2010 9:20 AM CDT Radha Prasad MD CHEMISTRY [facility] [address] [place] [address] * XR DEXA BONE DENSITY 2 SITES (12/12/2009 9:09 AM CDT) Anatomical Region Laterality Modality Spine, HIPS, HIPL, HIPR Other Narrative 12/16/2009 12:46 PM CDT Please see scanned document for results of this study. Procedure Note Maria Regalado PA - 12/16/2009 Please see scanned document for results of this study. Radha Prasad MD DEXA * COLONOSCOPY SCREENING (11/23/2007) Radha Prasad MD GI PROCEDURE ORD from Last 3 Months or Most Recently Relevant to Health Maintenance Care Teams Resource Manager Relationship Specialty Start Date End Date Claudio Quezada MD PCP - General Family Practice 07/29/16
--- NOTE | 2023-09-21 09:45 | MM_ITS ---
Patient: KEREN REDDING Facility:?[facility] Patient ID:?[id number] Site Patient ID:?[id number] Site :?1955 Study:?XRay-Breast Bilateral 3D W/CAD-09/21/2023 10:15:36 AM Ordering Physician:Mike Final Report: DIGITAL DIAGNOSTIC BILATERAL MAMMOGRAM USING TOMOSYNTHESIS AND COMPUTER-AIDED DETECTION LEFT BREAST ULTRASOUND CLINICAL HISTORY: LEFT breast pain. COMPARISON: 11/02/2022, 10/29/2021, 03/09/2019. TECHNIQUE: Digital BILATERAL mammogram in four projections. Tomosynthesis and CAD utilized. Real-time ultrasound imaging of LEFT breast with imaging documentation. BREAST COMPOSITION: The breasts are heterogeneously dense, which may obscure small masses. FINDINGS: 3D CC/MLO BILATERAL mammogram images submitted. No suspicious masses or architectural distortion. Benign calcifications. No adenopathy. Targeted LEFT breast ultrasound performed at 11 o`clock 3 cm from the nipple and 11 o`clock 5 cm from the nipple. Mild fibrocystic changes are present. No suspicious mass. IMPRESSION: No evidence of malignancy. Mild fibrocystic changes and normal fibroglandular tissue. RECOMMENDATIONS: Annual BILATERAL screening mammography. Results and recommendations discussed with the patient. BI-RADS Category 2: Benign A lay language report of this examination will be provided to the patient. Dictated by Eamon Caba MD @ 09/21/2023 10:48:58 AM jj/Dictated by: Eamon Caba MD @ 09/21/2023 10:48:00 AM Signed by:?Eamon Caba MD @09/21/2023 11:10:09 AM (Electronic Signature)
--- NOTE | 2023-09-21 10:15 | US_ITS ---
Patient: KEREN REDDING Facility:?[facility] Patient ID:?[id number] Site Patient ID:?[id number] Site :?1955 Study:?US-Breast Left Dr. Caba to read-09/21/2023 10:33:04 AM Ordering Physician:?Trina Juniro Final Report: PLEASE SEE DIGITAL DIAGNOSTIC BILATERAL MAMMOGRAM PERFORMED SAME DAY CRL:maryanne madden/Dictated by: Eamon Caba MD @ 09/21/2023 10:49:00 AM Signed by:?Eamon Caba MD @09/21/2023 11:10:10 AM (Electronic Signature)
== END 2023-09-21 09:33 | disposition home or self-care (01) ==
LOC: MAMMO 09:32
PROVIDERS: PCP Nurse Practitioner Family; Visit Provider Registered Nurse
DX: N64.4 Mastodynia (principal); R92.2 Inconclusive mammogram
CPT/HCPCS: 76642; 77066; G0279

== ENCOUNTER 2024-01-07 07:40 | Outpatient (CLI) | payer OTHER, SELFPAY ==
--- OUTSIDE RECORDS SUMMARY | 2024-01-11 17:27 | XMS_ITS | Clinical Summary ---
Author Organization [email or web address] [facility] Address [place], [place] [address] Care Team Providers Care Tank Calibrator Name Role Phone Claudio Quezada MD Primary Care Provider [phone] Allergies Active Allergy Reactions Criticality Noted Date [...] Date Resolved Date Acute cystitis 11/29/2003 12/23/2010 Immunizations Name Administration Dates Next Due Influenza, [...] Outcome GA Total Labor Labor/2nd/3rd Weight Sex Type Anes PTL Laura A1 A5 Name Clin Term Term Comments NSVLD x2 Last Filed [...] PCV) 2020 COVID-19 vaccine series (1 - 2022- season) 2023 Influenza for age 65+ 01/16/2024 02/05/2009 Tdap Completed 10/03/2007 Procedures Procedure Name Priority Date/Time Associated Diagnosis Comments XR MAMMO BILAT SCREEN FFDM (IA) Routine 12/23/2011 9:41 AM CDT Other screening mammogram LIPID PANEL Routine 12/23/2010 9:26 AM CDT Annual physical exam XR DXA BONE DENSITY 2 SITES AXIAL Routine 12/12/2009 9:09 AM CDT Osteoporosis screening COLONOSCOPY SCREENING Routine 11/23/2007 Screening Malignant Neoplasms Colon from Last 3 Months or Most Recently Relevant to Health Maintenance Results * XR MAMMO BILAT SCREEN FFDM (12/23/2011 [...] Computer-Aided Detection. ?? COMPARISON FILMS: Yes 12/29/10 [facility] 12/06/09 [facility] FINDINGS: ??Mammographically, the breast tissue is heterogeneously dense, which could obscure detection of small masses (approximately 51% - 75% glandular). ??No suspicious masses or microcalcifications. ??Benign appearing calcifications within both breasts and Benign appearing mass(es) within right breast. Procedure Note RensselaerClaudio oteroDO - 12/23/2011 XR MAMMO BILAT SCREEN FFDM [G0202.0] CLINICAL HISTORY: This is an asymptomatic 56 y.o. patient. INDICATION FOR EXAM: Mammogram Screening. TECHNIQUE: CC & MLO views were obtained. This digital study was evaluatedwith the assistance of Computer-Aided Detection. COMPARISON FILMS: Yes 12/29/10 [facility] 12/06/09 [facility] FINDINGS: Mammographically, the breast tissue is heterogeneously [...] CDT) CHOLESTEROL,TOTAL 206(H) 110 - 199 mg/dL [facility] TRIGLYCERIDES 118 <150 mg/dL [facility] HDL CHOLESTEROL 74 >40 mg/dL [facility] CHOL/HDL RATIO 2.78 <4.51 [facility] LDL CHOLESTEROL 108 <131 mg/dL [facility] PATIENT STATUS Fasting [facility] Blood specimen (specimen) BLOOD SPECIMEN / Unknown 12/23/2010 9:26 AM CDT 12/23/2010 9:20 AM CDT Radha Prasad MD CHEMISTRY [facility] [address] [place] [address] * XR DEXA BONE DENSITY 2 SITES [...] Recently Relevant to Health Maintenance Care Teams Tank Calibrator Relationship Specialty Start Date End Date Claudio Quezada MD PCP - General Family Practice 07/29/16
== END 2024-01-07 07:41 | disposition home or self-care (01) ==
LOC: NFLDREF 01-11 17:25
PROVIDERS: PCP Nurse Practitioner Family; Referring Provider Nurse Practitioner Family; Visit Provider Nurse Practitioner Family
DX: Z13.6 Encounter for screening for cardiovascular disorders (principal)
CPT/HCPCS: 80061

== ENCOUNTER 2024-02-03 12:44 | Outpatient (CLI) | payer OTHER, SELFPAY ==
--- OUTSIDE RECORDS SUMMARY | 2024-02-03 12:46 | XMS_ITS | Clinical Summary ---
Author Organization [employer] [facility] Address [place], [place] [address] Care Team Providers Care Trimmer Loader Name Role Phone Claudio Quezada MD Primary Care Provider [phone] Allergies Active Allergy Reactions Criticality Noted Date [...] of complication 0 12/23/2010 HTN (hypertension) 02/21/2008 Overview (07/30/2009): Updated by system to replace inactive record [...] COVID-19 vaccine series (1 - 2022- season) 2024 Influenza for age 65+ 01/16/2024 02/05/2009 Tdap [...] Computer-Aided Detection. ?? COMPARISON FILMS: Yes 12/29/10 [facility] 12/06/09 [facility] FINDINGS: ??Mammographically, the breast tissue is heterogeneously dense, which could obscure detection of small masses (approximately 51% - 75% glandular). ??No suspicious masses or microcalcifications. ??Benign appearing calcifications within both breasts and Benign appearing mass(es) within right breast. Procedure Note Claudio Keenan DO - 12/23/2011 XR MAMMO BILAT SCREEN FFDM [G0202.0] CLINICAL HISTORY: This is an asymptomatic 56 y.o. patient. INDICATION FOR EXAM: Mammogram Screening. TECHNIQUE: CC & MLO views were obtained. This digital study was evaluatedwith the assistance of Computer-Aided Detection. COMPARISON FILMS: Yes 12/29/10 [facility] 12/06/09 [facility] FINDINGS: Mammographically, the breast tissue is heterogeneously [...] 206(H) 110 - 199 mg/dL [facility] TRIGLYCERIDES 118 <150 mg/dL [facility] HDL CHOLESTEROL 74 >40 mg/dL [facility] CHOL/HDL RATIO 2.78 <4.51 [facility] LDL CHOLESTEROL 108 <131 mg/dL [facility] PATIENT STATUS Fasting [facility] Blood specimen (specimen) BLOOD SPECIMEN / Unknown 12/23/2010 9:26 AM CDT 12/23/2010 9:20 AM CDT Radha Prasad MD CHEMISTRY [facility] [address] [place] [address] * XR DEXA BONE DENSITY 2 SITES [...] Recently Relevant to Health Maintenance Care Teams Trimmer Loader Relationship Specialty Start Date End Date Claudio Quezada MD PCP - General Family Practice 07/29/16
--- NOTE | 2024-02-03 13:00 | CRLHL7_ITS ---
For Patients: As a result of the Century Cures Act, medical imaging exams and procedure reports are released immediately into your electronic medical record. You may view this report before your referring provider. If you have questions, please contact your health care provider. DXA BONE MINERAL DENSITY STUDY Reason for exam: Osteoporosis. Current height (in): 63. Weight (lb): 122. Menopause age: 51. Ethnicity: White. 1. Have you had a previous hip or vertebral fracture? No. 2. Have you had any fractures during your adult life which did not result from significant trauma (e.g., auto accident)? Yes. 3. Did either of your parents have a hip fracture? No. 4. Do you smoke? No. 5. Have you ever taken Glucocorticoids? No. 6. Do you have rheumatoid arthritis? No. 7. Do you have secondary osteoporosis? No. 8. Do you drink 3 or more alcoholic drinks per day? No. 9. Are you being treated for osteoporosis? No. 10. Have you ever taken any of the following medications: Actonel, Evista, Fosamax, Miacalcin, Reclast, Boniva, Forteo, HRT (i.e. estrogen/hormone therapy), Protelos, Prolia, Vitamin D, Calcium, other ??? please specify. ANSWER: Yes, Fosamax, HRT (i.e. estrogen/hormone therapy), vitamin D and calcium. 11. Do you have any of the following medical conditions: Anorexia or bulimia, asthma or emphysema, end stage renal disease, hyperparathyroidism, any seizure disorders, cancer, inflammatory bowel diseases, hysterectomy, other ??? please specify. ANSWER: No. 12. What was your maximum height (inches)? 64. 13. Do you perform weight bearing exercise regularly? No. 14. Do you regularly consume dairy products? No. 15. Do you drink caffeinated beverages? No. 16. At what age did your period start? 13. 17. Are you premenopausal? No. 18. How many full term pregnancies have you had? 2. 19. Have you ever missed your period for more than 6 months in a row (not including or menopause)? No. TECHNIQUE: Bone mineral density study was performed using the [employer]. FINDINGS: The results of the study expressed as bone mineral density (BMD) are as follows: Lumbar spine L1 to L3: BMD: 0.920 g/cm2. T-score: -0.9. Z-score: 1.1. Neck Left: BMD: 0.555 g/cm2. T-score: -2.7. Z-score: -0.9. Right: BMD: 0.503 g/cm2. T-score: -3.1. Z-score: -1.4. Total Left: BMD: 0.706 g/cm2. T-score: -1.9. Z-score: -0.5. Right: BMD: 0.673 g/cm2. T-score: -2.2. Z-score: -0.8. IMPRESSION: Osteoporosis. *Comparison exams done prior to 10/2019 were performed on different unit, Pay with a Tweet. COMPARISON: Compared with scan of 10/08/2021, the bone mineral density has increased by 1.2 percent at the spine and increased by 4.9 percent at the hip. Compared with scan of 05/02/2018, the bone mineral density has increased by 3.7 percent at the spine and decreased by 0.4 percent at the hip. Eamon Caba M.D. Diagnostic Radiologist [email or web address] SP/Dictated by: Eamon Caba MD @ 02/04/2024 8:10:00 AM (Electronically Signed)
== END 2024-02-03 12:45 | disposition home or self-care (01) ==
LOC: RAD 12:45
PROVIDERS: PCP Nurse Practitioner Family; Visit Provider Nurse Practitioner Family
DX: M81.0 Age-related osteoporosis without current pathological fracture (principal)
CPT/HCPCS: 77080

== ENCOUNTER 2024-02-24 08:18 | Outpatient (CLI) | payer OTHER, SELFPAY ==
--- NOTE | 2024-02-24 09:53 | W.ANESCHARGE ---
Anesthesia Charges Start Date/Time Anesthesia Start Date: 02/24/24 Anesthesia Start Time: 09:15 Stop Date/Time Anesthesia Stop Date: 02/24/24 Anesthesia Stop Time: 09:48
--- NOTE | 2024-02-24 11:35 | W.ANESCHARGE ---
Anesthesia Charges Start Date/Time Anesthesia Start Date: 02/24/24 Anesthesia Start Time: 09:15 Stop Date/Time Anesthesia Stop Date: 02/24/24 Anesthesia Stop Time: 09:48
== END 2024-02-24 08:19 | disposition home or self-care (01) ==
LOC: OP CLINIC 08:19
PROVIDERS: PCP Nurse Practitioner Family; Visit Provider Surgery
DX: Z12.11 Encounter for screening for malignant neoplasm of colon (principal); D12.0 Benign neoplasm of cecum; D12.3 Benign neoplasm of transverse colon; Z80.0 Family history of malignant neoplasm of digestive organs
CPT/HCPCS: 00811; 45380; 45385; 88305; J2704

== ENCOUNTER 2024-04-18 07:35 | Outpatient (CLI) | payer OTHER, SELFPAY ==
--- OUTSIDE RECORDS SUMMARY | 2024-04-21 04:07 | XMS_ITS | Clinical Summary ---
Author Organization [email or web address] [facility] Address [place], [place] [address] Care Team Providers Care Melting Operator Name Role Phone Claudio Quezada MD Primary Care Provider [phone] Allergies Active Allergy Reactions Criticality Noted Date [...] 84 08/13/2016 5:41 PM CDT Temperature 37.1 C (98.8 F) 12/14/2011 3:32 PM CDT Respiratory Rate 14 01/01/2012 8:35 AM CDT [...] PCV) 2020 COVID-19 vaccine series (1 - 2023- season) 2024 Influenza for age 65+ 01/16/2024 [...] Bilateral Mammography Impressions 12/23/2011 12:19 PM CDT There is no radiographic evidence for malignancy. Recommend annual mammograms. A lay language report of this examination will be provided to the patient. MAMMOGRAM ASSESSMENT: ACR 2 Benign Narrative 12/23/2011 12:19 PM CDT XR MAMMO BILAT SCREEN FFDM [G0202.0] CLINICAL HISTORY: This is an asymptomatic 56 y.o. patient. INDICATION FOR EXAM: Mammogram Screening. TECHNIQUE: CC & MLO views were obtained. This digital study was evaluated with the assistance of Computer-Aided Detection. COMPARISON FILMS: Yes 12/29/10 [facility] 12/06/09 [facility] FINDINGS: Mammographically, the breast tissue is heterogeneously dense, which could obscure detection of small masses (approximately 51% - 75% glandular). No suspicious masses or microcalcifications. Benign appearing calcifications within both breasts and Benign appearing mass(es) within right breast. Procedure Note Claudio KeenanDO - 12/23/2011 XR MAMMO BILAT SCREEN FFDM [G0202.0] CLINICAL HISTORY: This is an asymptomatic 56 y.o. patient. INDICATION FOR EXAM: Mammogram Screening. TECHNIQUE: CC & MLO views were obtained. This digital study was evaluatedwith the assistance of Computer-Aided Detection. COMPARISON FILMS: Yes 12/29/10 [facility] 12/06/09 [facility] FINDINGS: Mammographically, the breast tissue is [...] CDT) CHOLESTEROL,TOTAL 206(H) 110 - 199 mg/dL [facility] TRIGLYCERIDES 118 <150 mg/dL [facility] HDL CHOLESTEROL 74 >40 mg/dL [facility] CHOL/HDL RATIO 2.78 <4.51 [facility] LDL CHOLESTEROL 108 <131 mg/dL [facility] PATIENT STATUS Fasting [facility] Blood specimen (specimen) BLOOD SPECIMEN / Unknown 12/23/2010 9:26 AM CDT 12/23/2010 9:20 AM CDT Radha Prasad MD CHEMISTRY [facility] [address] [place] [address] * XR DEXA BONE DENSITY 2 SITES [...] Recently Relevant to Health Maintenance Care Teams Melting Operator Relationship Specialty Start Date End Date Claudio Quezada MD PCP - General Family Practice 07/29/16
== END 2024-04-18 07:36 | disposition home or self-care (01) ==
LOC: NFLDREF 04-21 04:05
PROVIDERS: PCP Nurse Practitioner Family; Referring Provider Nurse Practitioner Family; Visit Provider Nurse Practitioner Family
DX: E78.5 Hyperlipidemia, unspecified (principal); Z51.81 Encounter for therapeutic drug level monitoring
CPT/HCPCS: 80061; 80076

== ENCOUNTER 2024-07-14 07:00 | Outpatient (CLI) | payer OTHER, SELFPAY | END 2024-07-14 07:01 | disposition home or self-care (01) | LOC: NFLDREF 13:53 | PROVIDERS: PCP Nurse Practitioner Family; Referring Provider Nurse Practitioner Family; Visit Provider Nurse Practitioner Family | DX: I10 Essential (primary) hypertension (principal); R31.9 Hematuria, unspecified | CPT/HCPCS: 80048; 87086; 87338 ==

== ENCOUNTER 2024-09-26 14:37 | Outpatient (CLI) | payer OTHER, SELFPAY | END 2024-09-26 14:38 | disposition home or self-care (01) | PROVIDERS: PCP Nurse Practitioner Family; Visit Provider Nurse Practitioner Family | DX: E78.5 Hyperlipidemia, unspecified (principal); I10 Essential (primary) hypertension; R53.83 Other fatigue; M25.50 Pain in unspecified joint; R07.89 Other chest pain; R53.1 Weakness | CPT/HCPCS: 80053; 80061; 82550; 82607; 84443; 84484; 84550; 85025; 85651; 86038; 86140; 86200; 86431; 86618; 86812 ==

== ENCOUNTER 2024-10-31 15:00 | Outpatient (RCR) | payer OTHER, SELFPAY | END 2024-12-14 10:49 | disposition home or self-care (01) | PROVIDERS: PCP Nurse Practitioner Family; Visit Provider Nurse Practitioner Family | DX: M54.2 Cervicalgia (principal); Z51.89 Encounter for other specified aftercare | CPT/HCPCS: 97110; 97112; 97161 ==

== ENCOUNTER 2024-11-06 07:59 | Outpatient (CLI) | payer OTHER, SELFPAY ==
--- NOTE | 2024-11-06 08:15 | CRLHL7_ITS ---
For Patients: As a result of the Century Cures Act, medical imaging exams and procedure reports are released immediately into your electronic medical record. You may view this report before your referring provider. If you have questions, please contact your health care provider. INDICATION: BILATERAL SCREENING MAMMOGRAM, ASYMPTOMATIC 69 Y/O FEMALE COMPARISON: 09/21/2023, 11/02/2022, 10/29/2021 TECHNIQUE: Digital mammogram in CC and MLO projections including computer-aided detection (CAD) and tomosynthesis. BREAST COMPOSITION: The breasts are heterogeneously dense, which may obscure small masses. FINDINGS: No suspicious findings. ASSESSMENT: BI-RADS 2 Benign RECOMMENDATION: Annual screening mammogram. A lay language report of this examination will be provided to the patient. Dictated by: Eamon Caba MD @ 11/06/2024 09:51:30 (Electronically Signed)
--- OUTSIDE RECORDS SUMMARY | 2024-11-07 00:40 | XMS_ITS | Clinical Summary ---
Author Organization [employer] [facility] Address [address] [place] [address] Care Team Providers Care B2B Sales Representative Name Role Phone Claudio Quezada MD Primary Care Provider [phone] Allergies Active Allergy Reactions Criticality Noted Date Comments Codeine Vomiting 07/27/2006 Medications multivitamin (MVI) tablet Take 1 tablet by mouth once daily. 0 07/17/2009 Active calcium carbonate-vitami n D3, 600 mg-400 unit, tablet Take 1 tablet by mouth 2 times daily with meals. 180 tablet 05/09/2012 9:49 AM R D MANAGER 05/05/2012 Active lisinopril-hydro chlorothiazide, 10-12.5 mg, (PRINZIDE; ZESTORETIC) 10-12.5 mg per tabletIndication s:HTN (hypertension) Take 1 tablet by mouth once daily. 90 tablet 05/09/2012 9:49 AM R D MANAGER 05/05/2012 Active Active Problems Problem Noted Date [...] Resolved Date Acute cystitis 11/29/2003 12/23/2010 Immunizations Immunization Administration Dates Next Due Influenza, IIV3 (Age [...] 0.6 oz p ure alcohol) 1-2 week Comments No Sex and Gender Information Value Date Recorded Sex Assigned at Not on file Legal Sex Female 5:51 AM R D MANAGER Gender Identity Not on file Sexual Orientation [...] age 18+ 1973 Hepatitis C screening for age 18-79 1973 Pneumococcal series for age 50+ (1 of 1 - PCV) 2005 Zoster (shingles) series for age 50+ (1 of 2) 2005 Mammogram for age 45-75 12/22/2012 12/23/19 12, 12/29/2010, 09/12/2010, Additional history exists Lipids for age 45-75 12/24/2015 12/23/2010, 12/11/2009, 12/10/2008, Additional history exists Tetanus booster 10/02/2017 10/03/2007, 05/25/1996 Colonoscopy through age 75 11/22/2017 11/23/2007, DEXA/DXA scan for age 65+ 2020 12/12/2009 COVID-19 vaccine series ( - 2023- season) 2024 Influenza Vaccine (Season Ended) 2025 02/05/2009 RSV vaccine for adults or (1 - 1-dose 75+ series) 2030 Tdap Completed 10/03/2007 Hepatitis B series for 19+ Aged Out N o longer eligible based on patient's age to complete this topic Procedures Procedure Name Priority Date/Time Associated Diagnosis [...] of Computer-Aided Detection. COMPARISON FILMS: Yes 12/29/10 [facility] 12/06/09 [facility] FINDINGS: Mammographically, the breast tissue is heterogeneously dense, which could obscure detection of small masses (approximately 51% - 75% glandular). No suspicious masses or microcalcifications. Benign appearing calcifications within both breasts and Benign appearing mass(es) within right breast. Procedure Note Claudio Keenan, - 12/23/2011 XR MAMMO BILAT SCREEN FFDM [G0202.0] CLINICAL HISTORY: This is an asymptomatic 56 y.o. patient. INDICATION FOR EXAM: Mammogram Screening. TECHNIQUE: CC & MLO views were obtained. This digital study was evaluatedwith the assistance of Computer-Aided Detection. COMPARISON FILMS: Yes 12/29/10 [facility] 12/06/09 [facility] FINDINGS: Mammographically, the breast tissue is heterogeneously dense,which could obscure detection of small masses (approximately 51% - 75%glandular). No suspicious masses or microcalcifications. Benignappearing calcifications within both breasts and Benign appearing mass(es)within right breast. IMPRESSION: There is no radiographic evidence for malignancy. Recommendannual mammograms. A lay language report of this examination will be provided to the patient. MAMMOGRAM ASSESSMENT: ACR 2 Benign us Radha Prasad MD MAMMO Final Resu lt * (ABNORMAL) LIPID PANEL (12/23/2010 9:26 AM CDT) CHOLESTEROL,TOTAL 206(H) 110 - 199 mg/dL [facility] TRIGLYCERIDES 118 <150 mg/dL [facility] HDL CHOLESTEROL 74 >40 mg/dL [facility] CHOL/HDL RATIO 2.78 <4.51 [facility] LDL CHOLESTEROL 108 <131 mg/dL [facility] PATIENT STATUS Fasting [facility] Blood specimen (specimen) BLOOD SPECIMEN / Unknown 12/23/2010 9:26 AM CDT 12/23/2010 9:20 AM CDT Radha Prasad MD CHEMISTRY Final Resu lt [facility] [address] [place] [address] * XR DEXA BONE DENSITY 2 SITES (12/12/2009 9:09 AM CDT) Anatomical Region Laterality Modality Spine, HIPS, HIPL, HIPR Other Narrative 12/16/2009 12:46 PM CDT Please see scanned document for results of this study. Procedure Note Maria Regalado PA - 12/16/2009 Please see scanned document for results of this study. us Radha Prasad MD DEXA Final Resu lt * COLONOSCOPY SCREENING (11/23/2007) us Radha Prasad MD GI PROCEDURE ORD Final Res ult from Last 3 Months or Most Recently Relevant to Health Maintenance Insurance [employer] Care Teams B2B Sales Representative Relationship Specialty Start Date End Date Claudio Quezada MD PCP - General Family Practice 07/29/16
== END 2024-11-06 08:00 | disposition home or self-care (01) ==
LOC: MAMMO 08:00
PROVIDERS: PCP Nurse Practitioner Family; Visit Provider Nurse Practitioner Family
DX: Z12.31 Encounter for screening mammogram for malignant neoplasm of breast (principal); R92.333 Mammographic heterogeneous density, bilateral breasts
CPT/HCPCS: 77063; 77067

== ENCOUNTER 2025-02-01 15:14 | Outpatient (CLI) | payer OTHER, SELFPAY ==
--- NOTE | 2025-02-01 15:30 | MR_ITS ---
[address] [address] Phone:?[phone] Fax:?[phone] Referring Physician Information: Dusty Sandhu M.D. [address] [place] [address] Phone:?[phone] Fax:?[phone] Patient:Bennie Garcia D.O.B:?1955 Sex:?Female Phone:?[phone] [facility] MRN:?[id number] Exam Date:?02/01/2025 EXAM: MRI of the RIGHT KNEE, without contrast CLINICAL HISTORY: Ongoing right knee pain. Evaluate for meniscal tear. COMPARISONS: Plain radiographs 12/28/2024. TECHNICAL: MR sequences of the right knee: sagittals: PD, PDFS coronals: PD, STIR axials: PD, T2 FS CONTRAST: None SEDATION: None FINDINGS: Bones: No fracture, bone marrow contusion, or other suspicious bone marrow signal abnormality. Patellofemoral joint: Cartilage: Intact. Retinacula: The medial and lateral retinacula are intact. Fat pads: Edema-like signal within the superolateral portion of the infrapatellar fat pad is associated with patellar tendon-lateral femoral condyle friction/patellar maltracking. The Insall Salvati index measures 1.38. The lateral trochlear inclination angle is within normal limits. The tibial tubercle to trochlear groove distance measures 1.9 cm. Knee joint: Effusion: Physiologic amount of joint fluid. Popliteal cyst: Small popliteal cyst. Intra-articular bodies: None. Posteromedial corner: The semimembranosus and pes anserine tendons are intact. Medial compartment: Medial meniscus: 2-3 mm of medial meniscal extrusion best seen on coronal series 7 image 15. No finding meets MRI criteria for medial meniscal tear. 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 Lateral compartment: Lateral meniscus: Intact. Cartilage: 1.0 x 1.0 cm area of mild grade II chondromalacia over the posterior portion of the lateral tibial plateau. Ligaments: Anterior cruciate ligament: Intact. Posterior cruciate ligament: Intact. Medial collateral ligament: Intact. Posterior oblique ligament: Intact. Fibular collateral ligament: Intact. Posterolateral corner: The distal biceps femoris tendon, iliotibial band, popliteus tendon, popliteus muscle, popliteofibular ligament, and arcuate ligament are intact. Extensor mechanism: Patellar tendon: Intact. Quadriceps tendon: Intact. IMPRESSION: 1. 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 2. 1.0 x 1.0 cm area of mild grade II chondromalacia over the posterior portion of the lateral tibial plateau. 3. 2-3 mm of medial meniscal extrusion. No direct evidence of medial meniscal tear. 4. Edema-like signal within the superolateral portion of the infrapatellar fat pad is associated with patellar tendon-lateral femoral condyle friction/patellar maltracking. An increased Insall Salvati index of 1.38 suggests patella neville. The tibial tubercle to trochlear groove distance measures 1.9 cm. The lateral trochlear inclination angle is within normal limits. 5. Small popliteal cyst. 6. No ligamentous injury or lateral meniscal pathology of the right knee. RCB Electronically signed on 02/02/2025 7:03:00 AM by Chad Sprague M.D.
== END 2025-02-01 15:15 | disposition home or self-care (01) ==
PROVIDERS: PCP Nurse Practitioner Family; Visit Provider Orthopaedic Surgery
DX: M25.561 Pain in right knee (principal); M22.41 Chondromalacia patellae, right knee; M71.21 Synovial cyst of popliteal space [Baker], right knee
CPT/HCPCS: 73721